=== PATIENT | male | born 1975 | race Caucasian/White ===

== ENCOUNTER 2019-08-09 18:41 | Inpatient (IN) | payer BC ==
[~2019-08-09] VITALS: Ht 188 cm; Wt 96.9 kg
[2019-08-09] MEDS ORDERED: KETOROLAC 30 MG/1 ML IM ONE (19:00)
--- NOTE | 2019-08-09 19:01 | NUR ---
REPORT TO MARCIA VILLATORO.
[2019-08-09] MEDS ORDERED: KETOROLAC 30 MG/1 ML ONE (19:04)
--- NOTE | 2019-08-09 19:11 | NUR ---
pt medicated per mar. call light within reach. xray and lab at bedside
[2019-08-09 19:18] LABS: BASOPHILS # (AUTO) 0.05 x10^3/uL (0-0.1); BASOPHILS % (AUTO) 1 % (0-1); EOSINOPHILS % (AUTO) 2 % (1-7); HCT (SEDRATE) 43.4 % (39.2-51.8); LYMPHOCYTES # (AUTO) 2.62 x10^3/uL (1-3.4); LYMPHOCYTES % (AUTO) 31 % (22-44); MD NO; MEAN CORPUSCULAR HEMOGLOBIN 31.6 pg (27.5-34.5); MEAN CORPUSCULAR HGB CONC 34.1 g/dL (33.2-36.2); MEAN CORPUSCULAR VOLUME 92.7 fL (81-97); MEAN PLATELET VOLUME 7.1 fL (7.4-10.4); MONOCYTES # (AUTO) 0.78 x10^3/uL (0.2-0.8); MONOCYTES % (AUTO) 9 % (2-9); NEUTROPHILS # (AUTO) 4.92 x10^3/uL (1.8-6.8); NEUTROPHILS % (AUTO) 57 % (42-75); PLATELET COUNT 451 x10^3/uL (130-400); RED BLOOD COUNT 4.71 x10^6/uL (4.38-5.82); RED CELL DISTRIBUTION WIDTH 12.6 % (9.4-14.8)
[2019-08-09 19:36] LABS: C-REACTIVE PROTEIN, QUANT 6.1 mg/dL (0.02-0.49)
--- NOTE | 2019-08-09 20:25 | NUR ---
pt resting calmly, monitors in place, call light within reach. chart up for recheck
--- NOTE | 2019-08-09 21:00 | NUR ---
MRI QUESTIONNAIRE COMPLETED WITH PT. IV SITE STARTED. PT TO MRI
[2019-08-09] MEDS ORDERED: GADOTERATE 10 MMOL/20 ML SYR ONE (21:34)
--- NOTE | 2019-08-09 22:14 | NUR ---
PT RESTING CALMLY, DENIES NEEDS, MONITORS IN PLACE, SIDERAIL SUP X2, CALL LIGHT WITHIN REACH.
[2019-08-09] MEDS ORDERED: LIDOCAINE-MPF 1%, 5ML ONE (22:17)
[2019-08-09] MEDS ORDERED: ONDANSETRON 2MG/ML, 2ML ONE (22:19)
[2019-08-09] MEDS ORDERED: MORPHINE SULFATE 4 MG/ML, 1ML ONE (22:20)
--- NOTE | 2019-08-09 22:25 | NUR ---
PT MEDICATED PER JUL. ERP AT BEDSIDE FOR ARTHROCENTESIS
[2019-08-09] MEDS ORDERED: MORPHINE SULFATE 4 MG/ML, 1ML IVPush PRN (22:30)
[2019-08-09] MEDS ORDERED: ONDANSETRON 2MG/ML, 2ML IVPush ONE (22:30)
[2019-08-09] MEDS ORDERED: morphine SULFATE 10 MG/ML, 1ML IVPush PRN (22:30)
[2019-08-09] MEDS ORDERED: ONDANSETRON 2MG/ML, 2ML IVPush PRN (22:30)
[2019-08-09] MEDS ORDERED: BISACODYL 10 MG SUPP PR PRN (22:30)
[2019-08-09] MEDS: SODIUM CHLORIDE 0.9% 1,000 ML IV SCH (22:55)
[2019-08-09] MEDS ORDERED: VANCOMYCIN PER PHARMACY MC PRN ×2 (23:00)
[2019-08-09] MEDS ORDERED: AMPICILLIN/SULBACTAM 3 GM in SODIUM CHLORIDE 0.9% 100 ML IV ONE (23:00)
[2019-08-09 23:02] LABS: ALANINE AMINOTRANSFERASE 42 U/L (12-78); ALBUMIN 3.2 g/dL (3.4-5.0); ANION GAP 10 mmol/L (5-15); CALCIUM 9.3 mg/dL (8.5-10.1); CHLORIDE 109 mmol/L (98-107); CREATININE 0.99 mg/dL (0.7-1.3)
[2019-08-09 23:04] LABS: ALKALINE PHOSPHATASE 104 U/L (45-117); BILIRUBIN,TOTAL 0.2 mg/dL (0.2-1.0); TOTAL PROTEIN 8.2 g/dL (6.4-8.2)
--- NOTE | 2019-08-09 23:20 | NUR ---
IV ABX STARTED AFTER BLOOD C/X'S X 2 SETS DRAWN
[2019-08-09] MEDS ORDERED: VANCOMYCIN 2,500 MG in SODIUM CHLORIDE 0.9% 500 ML IV ONE (23:30)
[2019-08-09] MEDS ORDERED: PHARMACOKINETIC MONITORING MC PRN (23:45)
[2019-08-10] VITALS: BP 127/84
[2019-08-10 00:30] VITALS: BP 133/91
[2019-08-10 05:08] LABS: BASOPHILS # (AUTO) 0.03 x10^3/uL (0-0.1); BASOPHILS % (AUTO) 0 % (0-1); EOSINOPHILS # (AUTO) 0.24 x10^3/uL (0-0.4); EOSINOPHILS % (AUTO) 3 % (1-7); LYMPHOCYTES # (AUTO) 3.05 x10^3/uL (1-3.4); LYMPHOCYTES % (AUTO) 32 % (22-44); MD NO; MEAN CORPUSCULAR HEMOGLOBIN 31.8 pg (27.5-34.5); MEAN CORPUSCULAR HGB CONC 34.2 g/dL (33.2-36.2); MEAN PLATELET VOLUME 7.3 fL (7.4-10.4); MONOCYTES # (AUTO) 0.88 x10^3/uL (0.2-0.8); MONOCYTES % (AUTO) 9 % (2-9); NEUTROPHILS # (AUTO) 5.34 x10^3/uL (1.8-6.8); NEUTROPHILS % (AUTO) 56 % (42-75); PLATELET COUNT 378 x10^3/uL (130-400); RED BLOOD COUNT 4.21 x10^6/uL (4.38-5.82); RED CELL DISTRIBUTION WIDTH 12.6 % (9.4-14.8)
[2019-08-10 05:16] LABS: ANION GAP 6 mmol/L (5-15); CHLORIDE 109 mmol/L (98-107); CREATININE 0.85 mg/dL (0.7-1.3)
[2019-08-10] MEDS: AMPICILLIN/SULBACTAM 3 GM in SODIUM CHLORIDE 0.9% 100 ML IV SCH ×4 (05:43→23:17)
[2019-08-10] MEDS: ACETAMINOPHEN 325 MG TABLET PO PRN ×2 (05:48→12:01)
[2019-08-10 07:29] VITALS: BP 130/82
[2019-08-10] MEDS: SODIUM CHLORIDE 0.9% 1,000 ML IV SCH ×2 (10:01→18:30)
[2019-08-10 13:01] VITALS: BP_SYST 117; BP_SYST 141; BP_DIAS 82; BP_DIAS 95
[2019-08-10] MEDS: VANCOMYCIN 1,800 MG in SODIUM CHLORIDE 0.9% 250 ML IV SCH ×2 (13:14→23:57)
[2019-08-10] MEDS ORDERED: CHLORHEXIDINE 15 ML UDC ONE (14:23)
[2019-08-10] MEDS ORDERED: CHLORHEXIDINE 15 ML UDC MM ONE (14:30)
[2019-08-10] MEDS ORDERED: MIDAZOLAM 1 MG/ML, 2ML ONE (14:43)
[2019-08-10] MEDS ORDERED: FENTANYL PF 250 MCG/5ML ONE (14:43)
[2019-08-10] MEDS ORDERED: HYDROmorphone 2 MG/ML, 1ML IVPush PRN (15:00)
[2019-08-10] MEDS ORDERED: hydrALAzine 20 MG/ML, 1ML IV PRN (15:00)
[2019-08-10] MEDS ORDERED: LABETALOL 5MG/ML, 20ML IV PRN (15:00)
[2019-08-10] MEDS ORDERED: OXYcodone 5 MG/5 ML ORAL.SOL UDC PO PRN (15:00)
[2019-08-10] MEDS ORDERED: MEPERIDINE/PF 25MG/ML,1ML IVPush PRN (15:00)
[2019-08-10] MEDS ORDERED: PROMETHAZINE 25 MG/ML, 1ML IV PRN (15:00)
[2019-08-10] MEDS ORDERED: HALOPERIDOL 5 MG/ML IV PRN (15:00)
[2019-08-10] MEDS ORDERED: BUPIVACAINE/PF 0.5% ONE (15:22)
[2019-08-10] MEDS ORDERED: PROPOFOL 10 MG/ML, 20ML ONE (15:33)
[2019-08-10] MEDS ORDERED: ONDANSETRON 2MG/ML, 2ML ONE (15:33)
[2019-08-10] MEDS ORDERED: GLYCOPYRROLATE 0.2MG/1ML, 5ML ONE (15:33)
[2019-08-10] MEDS ORDERED: CEFAZOLIN 1,000 MG ONE (15:33)
[2019-08-10] MEDS ORDERED: DEXAMETHASONE 4 MG/ML, 1ML ONE (15:33)
[2019-08-10] MEDS ORDERED: ROCURONIUM 10MG/ML,5ML ONE (15:33)
[2019-08-10] MEDS ORDERED: NEOSTIGMINE 1 MG/ML, 10ML ONE (15:33)
[2019-08-10] MEDS ORDERED: SUCCINYLCHOLINE 20 MG/ML, 10ML ONE (15:33)
[2019-08-10] MEDS ORDERED: FENTANYL PF 100 MCG/2ML ONE (15:50)
[2019-08-10] MEDS ORDERED: OXYcodone 5 MG/5 ML ORAL.SOL UDC ONE (15:50)
[2019-08-10] MEDS: FENTANYL PF 100 MCG/2ML IV PRN ×2 (15:53→16:04)
[2019-08-10 16:31] VITALS: BP 133/90
[2019-08-10] MEDS: HYDROcodone/APAP 5/325 TABLET PO PRN ×2 (17:50→23:56)
[2019-08-10 19:43] VITALS: BP 127/83
[2019-08-11] MEDS: SODIUM CHLORIDE 0.9% 1,000 ML IV SCH
[2019-08-11 00:28] VITALS: BP 123/79
[2019-08-11 04:07] VITALS: BP 104/62
[2019-08-11 04:43] LABS: BASOPHILS # (AUTO) 0.02 x10^3/uL (0-0.1); BASOPHILS % (AUTO) 0 % (0-1); EOSINOPHILS # (AUTO) 0.03 x10^3/uL (0-0.4); EOSINOPHILS % (AUTO) 0 % (1-7); LYMPHOCYTES # (AUTO) 2.08 x10^3/uL (1-3.4); LYMPHOCYTES % (AUTO) 18 % (22-44); MD NO; MEAN CORPUSCULAR HEMOGLOBIN 31.7 pg (27.5-34.5); MEAN CORPUSCULAR HGB CONC 34.3 g/dL (33.2-36.2); MEAN CORPUSCULAR VOLUME 92.5 fL (81-97); MEAN PLATELET VOLUME 7.1 fL (7.4-10.4); MONOCYTES # (AUTO) 0.71 x10^3/uL (0.2-0.8); MONOCYTES % (AUTO) 6 % (2-9); NEUTROPHILS # (AUTO) 8.54 x10^3/uL (1.8-6.8); NEUTROPHILS % (AUTO) 75 % (42-75); PLATELET COUNT 369 x10^3/uL (130-400); RED BLOOD COUNT 3.98 x10^6/uL (4.38-5.82); RED CELL DISTRIBUTION WIDTH 12.3 % (9.4-14.8)
[2019-08-11] MEDS: AMPICILLIN/SULBACTAM 3 GM in SODIUM CHLORIDE 0.9% 100 ML IV SCH ×4 (05:40→23:15)
[2019-08-11 07:01] VITALS: BP 127/80
[2019-08-11] MEDS: HYDROcodone/APAP 5/325 TABLET PO PRN ×3 (08:42→23:14)
[2019-08-11 11:33] LABS: CREATININE 0.82 mg/dL (0.7-1.3)
[2019-08-11 11:36] LABS: VANCOMYCIN,TROUGH 11.3 mcg/mL (5.0-10.0)
[2019-08-11] MEDS: VANCOMYCIN 1,800 MG in SODIUM CHLORIDE 0.9% 250 ML IV SCH (12:29)
[2019-08-11 13:02] VITALS: BP 131/80
[2019-08-11] MEDS: ENOXAPARIN 40 MG/0.4 ML SQ SCH (15:46)
[2019-08-11 20:18] VITALS: BP 135/88
[2019-08-12] MEDS: VANCOMYCIN 1,800 MG in SODIUM CHLORIDE 0.9% 250 ML IV SCH ×2 (00:21→11:55)
[2019-08-12 01:58] VITALS: BP 132/82
[2019-08-12] MEDS: HYDROcodone/APAP 5/325 TABLET PO PRN ×4 (04:46→22:37)
[2019-08-12 05:48] LABS: BASOPHILS # (AUTO) 0.04 x10^3/uL (0-0.1); BASOPHILS % (AUTO) 0 % (0-1); EOSINOPHILS # (AUTO) 0.17 x10^3/uL (0-0.4); EOSINOPHILS % (AUTO) 2 % (1-7); LYMPHOCYTES # (AUTO) 3.52 x10^3/uL (1-3.4); LYMPHOCYTES % (AUTO) 30 % (22-44); MD NO; MEAN CORPUSCULAR HEMOGLOBIN 31.3 pg (27.5-34.5); MEAN CORPUSCULAR VOLUME 92.1 fL (81-97); MEAN PLATELET VOLUME 7.5 fL (7.4-10.4); MONOCYTES # (AUTO) 0.88 x10^3/uL (0.2-0.8); MONOCYTES % (AUTO) 8 % (2-9); NEUTROPHILS # (AUTO) 7.01 x10^3/uL (1.8-6.8); NEUTROPHILS % (AUTO) 60 % (42-75); PLATELET COUNT 408 x10^3/uL (130-400); RED BLOOD COUNT 4.29 x10^6/uL (4.38-5.82); RED CELL DISTRIBUTION WIDTH 12.6 % (9.4-14.8)
[2019-08-12] MEDS: AMPICILLIN/SULBACTAM 3 GM in SODIUM CHLORIDE 0.9% 100 ML IV SCH (05:50)
[2019-08-12 05:54] LABS: ANION GAP 6 mmol/L (5-15); CALCIUM 9.3 mg/dL (8.5-10.1); CHLORIDE 107 mmol/L (98-107); CREATININE 1.02 mg/dL (0.7-1.3)
[2019-08-12 06:50] VITALS: BP 143/85
[2019-08-12] MEDS: DOCUSATE 100 MG CAPSULE PO SCH ×2 (10:37→20:07)
[2019-08-12] MEDS: POLYETHYLENE GLYCOL 17 GM PACKET PO SCH (10:37)
[2019-08-12 12:23] VITALS: BP 144/90
[2019-08-12] MEDS: ERTAPENEM 1 GM in SODIUM CHLORIDE 0.9% 50 ML IV SCH (15:17)
[2019-08-12] MEDS: ENOXAPARIN 40 MG/0.4 ML SQ SCH (16:50)
[2019-08-12 18:16] VITALS: BP 129/75
[2019-08-13 00:05] VITALS: BP 123/86
[2019-08-13] MEDS: HYDROcodone/APAP 5/325 TABLET PO PRN ×3 (04:34→18:03)
[2019-08-13 05:35] LABS: BASOPHILS # (AUTO) 0.04 x10^3/uL (0-0.1); BASOPHILS % (AUTO) 0 % (0-1); EOSINOPHILS # (AUTO) 0.27 x10^3/uL (0-0.4); EOSINOPHILS % (AUTO) 3 % (1-7); LYMPHOCYTES % (AUTO) 34 % (22-44); MD NO; MEAN CORPUSCULAR HEMOGLOBIN 31.4 pg (27.5-34.5); MEAN CORPUSCULAR VOLUME 92.5 fL (81-97); MEAN PLATELET VOLUME 7.2 fL (7.4-10.4); MONOCYTES # (AUTO) 0.68 x10^3/uL (0.2-0.8); MONOCYTES % (AUTO) 8 % (2-9); NEUTROPHILS # (AUTO) 4.97 x10^3/uL (1.8-6.8); NEUTROPHILS % (AUTO) 56 % (42-75); PLATELET COUNT 409 x10^3/uL (130-400); RED BLOOD COUNT 4.28 x10^6/uL (4.38-5.82); RED CELL DISTRIBUTION WIDTH 12.7 % (9.4-14.8)
[2019-08-13 06:17] LABS: HCT (SEDRATE) 39.6 % (39.2-51.8)
[2019-08-13 07:09] VITALS: BP 111/78
[2019-08-13] MEDS: DOCUSATE 100 MG CAPSULE PO SCH ×2 (08:01→20:10)
[2019-08-13] MEDS: POLYETHYLENE GLYCOL 17 GM PACKET PO SCH (08:01)
[2019-08-13 13:18] VITALS: BP 130/87
[2019-08-13] MEDS: ERTAPENEM 1 GM in SODIUM CHLORIDE 0.9% 50 ML IV SCH (15:15)
[2019-08-13] MEDS: ENOXAPARIN 40 MG/0.4 ML SQ SCH (16:16)
[2019-08-13 20:11] VITALS: BP 116/79
[2019-08-14] MEDS: HYDROcodone/APAP 5/325 TABLET PO PRN ×4 (00:15→21:02)
[2019-08-14 01:37] VITALS: BP 116/74
[2019-08-14 07:12] VITALS: BP 116/78
[2019-08-14] MEDS: POLYETHYLENE GLYCOL 17 GM PACKET PO SCH (08:27)
[2019-08-14] MEDS: DOCUSATE 100 MG CAPSULE PO SCH ×2 (08:27→19:58)
[2019-08-14 13:26] VITALS: BP 113/81
[2019-08-14] MEDS: ERTAPENEM 1 GM in SODIUM CHLORIDE 0.9% 50 ML IV SCH (15:08)
[2019-08-14] MEDS: ENOXAPARIN 40 MG/0.4 ML SQ SCH (15:08)
[2019-08-14 19:06] VITALS: BP 131/89
[2019-08-15] MEDS: HYDROcodone/APAP 5/325 TABLET PO PRN (03:06)
[2019-08-15 03:12] VITALS: BP 114/77
[2019-08-15 06:09] LABS: HCT (SEDRATE) 41.9 % (39.2-51.8)
[2019-08-15 06:10] LABS: BASOPHILS # (AUTO) 0.04 x10^3/uL (0-0.1); BASOPHILS % (AUTO) 0 % (0-1); EOSINOPHILS # (AUTO) 0.27 x10^3/uL (0-0.4); EOSINOPHILS % (AUTO) 3 % (1-7); LYMPHOCYTES # (AUTO) 2.82 x10^3/uL (1-3.4); LYMPHOCYTES % (AUTO) 30 % (22-44); MD NO; MEAN CORPUSCULAR HGB CONC 33.6 g/dL (33.2-36.2); MEAN CORPUSCULAR VOLUME 92.4 fL (81-97); MEAN PLATELET VOLUME 7.2 fL (7.4-10.4); MONOCYTES # (AUTO) 0.75 x10^3/uL (0.2-0.8); MONOCYTES % (AUTO) 8 % (2-9); NEUTROPHILS # (AUTO) 5.58 x10^3/uL (1.8-6.8); NEUTROPHILS % (AUTO) 59 % (42-75); PLATELET COUNT 456 x10^3/uL (130-400); RED BLOOD COUNT 4.55 x10^6/uL (4.38-5.82); RED CELL DISTRIBUTION WIDTH 12.4 % (9.4-14.8)
[2019-08-15 06:15] LABS: ANION GAP 6 mmol/L (5-15); CALCIUM 9.7 mg/dL (8.5-10.1); CHLORIDE 106 mmol/L (98-107)
[2019-08-15 06:23] LABS: ALANINE AMINOTRANSFERASE 70 U/L (12-78); ALKALINE PHOSPHATASE 104 U/L (45-117); BILIRUBIN,TOTAL 0.6 mg/dL (0.2-1.0); CREATININE 0.97 mg/dL (0.7-1.3); TOTAL PROTEIN 8.4 g/dL (6.4-8.2)
[2019-08-15 07:04] VITALS: BP 127/75
[2019-08-15] MEDS: DOCUSATE 100 MG CAPSULE PO SCH ×2 (08:52→19:25)
[2019-08-15] MEDS: POLYETHYLENE GLYCOL 17 GM PACKET PO SCH (08:53)
[2019-08-15] MEDS: ERTAPENEM 1 GM in SODIUM CHLORIDE 0.9% 50 ML IV SCH (12:15)
[2019-08-15] MEDS ORDERED: IBUPROFEN 600 MG TABLET ONE (12:20)
[2019-08-15] MEDS: IBUPROFEN 600 MG TABLET PO PRN ×2 (12:23→19:25)
[2019-08-15] MEDS ORDERED: IBUPROFEN 200 MG TABLET PO PRN (12:30)
[2019-08-15 13:23] VITALS: BP 116/84
[2019-08-15] MEDS: ENOXAPARIN 40 MG/0.4 ML SQ SCH (17:27)
[2019-08-15 20:20] VITALS: BP 119/78
[2019-08-16 01:40] VITALS: BP 113/77
[2019-08-16] MEDS: IBUPROFEN 600 MG TABLET PO PRN ×4 (01:41→23:01)
[2019-08-16 07:25] VITALS: BP 108/73
[2019-08-16] MEDS: POLYETHYLENE GLYCOL 17 GM PACKET PO SCH (08:52)
[2019-08-16] MEDS: DOCUSATE 100 MG CAPSULE PO SCH ×2 (08:52→20:46)
[2019-08-16] MEDS: ERTAPENEM 1 GM in SODIUM CHLORIDE 0.9% 50 ML IV SCH (11:53)
[2019-08-16 13:59] VITALS: BP 120/77
[2019-08-16] MEDS: ENOXAPARIN 40 MG/0.4 ML SQ SCH (17:06)
[2019-08-16 19:58] VITALS: BP 112/70
[2019-08-17 03:18] VITALS: BP 107/66
[2019-08-17] MEDS: IBUPROFEN 600 MG TABLET PO PRN ×2 (05:19→11:26)
[2019-08-17 07:09] VITALS: BP 104/73
[2019-08-17] MEDS: POLYETHYLENE GLYCOL 17 GM PACKET PO SCH (08:32)
[2019-08-17] MEDS: DOCUSATE 100 MG CAPSULE PO SCH (08:32)
[2019-08-17] MEDS ORDERED: ERTA1VIA IV (11:19)
[2019-08-17] MEDS: ERTAPENEM 1 GM in SODIUM CHLORIDE 0.9% 50 ML IV SCH (11:58)
[2019-08-17 12:28] VITALS: BP 123/79
== END 2019-08-17 12:50 | disposition home or self-care (01) | DRG 493 ==
LOC: ED 20:36 → EDIP 22:57 → 4NE 23:34 → 4EST 08-12 11:09 → 4NE 08-12 11:09
PROVIDERS: ADMIT Internal Medicine; ATTEND Internal Medicine Infectious Disease
PROC: 0S9 Lower Joints, Drainage (ICD-10-PCS; 2019-08-10)
PROC: 0S9G0ZZ Drainage of Left Ankle Joint, Open Approach (ICD-10-PCS; principal; 2019-08-10 15:00)
PROC: 02HV33Z Insertion of Infusion Device into Superior Vena Cava, Percutaneous Approach (ICD-10-PCS; 2019-08-12)
DX: M00.9 Pyogenic arthritis, unspecified (principal); M86.172 Other acute osteomyelitis, left ankle and foot; M65.9 Synovitis and tenosynovitis, unspecified; M06.4 Inflammatory polyarthropathy; D72.829 Elevated white blood cell count, unspecified; D69.6 Thrombocytopenia, unspecified; W23.0XXA Caught, crushed, jammed, or pinched between moving objects, initial encounter; X50.1XXA Overexertion from prolonged static or awkward postures, initial encounter; Z88.8 Allergy status to other drugs, medicaments and biological substances; Z88.1 Allergy status to other antibiotic agents
CPT/HCPCS: 20605; 36415; 73610; 84560; 89050; 89060; 96372; 96374; 96375; 99285; S0020; 36573; 80048; 80053; 80202; 82565; 84550; 85025; 85651; 85810; 86140; 87040; 87070; 87075; 87077; 87186; 87205; 88305; G0378; J0295; J0690; J1100; J1335; J1650; J1885; J2250; J2405; J2704; J2710; J3010; J3370; A9575; C1751; J0330; J2270; J7030; J7040; J7050